=== PATIENT | male | born 1950 | race Two or more races ===

== ENCOUNTER → 2024-04-12 | Outpatient (CLI) | payer OTHER, SELFPAY ==
[2024-04-12 10:36] LABS: Basophils # (Auto) 0.1 Thou/mm3 (0.0-0.2); Basophils % (Auto) 1 % (0-2.5); Eosinophils # (Auto) 0.3 Thou/mm3 (0.0-0.5); Eosinophils % (Auto) 4 % (0-10); Hemoglobin 10.9 g/dL (13.5-16.0); Immature Granulocytes % (Auto) 0 % (0-0); Immature Granulocytes Auto 0.01 Thou/mm3 (0.00-0.00); Lymphocytes # (Auto) 2.1 Thou/mm3 (1.0-4.8); Lymphocytes % (Auto) 30 % (10-50); Mean Corpuscular HGB Conc 31.1 g/dl (31.0-37.0); Mean Corpuscular Hemoglobin 27.3 pg (25.0-35.0); Mean Corpuscular Volume 88 fL (80-100); Monocytes # (Auto) 0.6 Thou/mm3 (0.0-0.8); Monocytes % (Auto) 8 % (0-12); Neutrophils % (Auto) 57 % (37-80); Nucleated Red Blood Cell % 0 /100 WBC (0); Platelet Count 284 Thou/mm3 (140-440); RDW Standard Deviation 43.5 fL (35.1-43.9)
[2024-04-12 10:47] LABS: Alanine Aminotransferase 14 U/L (10-49); Albumin, Serum 4.5 gm/dL (3.4-4.8); Albumin/Globulin Ratio 1.8 (1.2-2.2); Alkaline Phosphatase 102 U/L (46-116); Anion Gap 7 (7-16); Aspartate Amino Transferase 18 U/L (0-34); BUN/Creatinine Ratio 22 Ratio (12-20); Bilirubin,Total 0.5 mg/dL (0.3-1.2); Blood Urea Nitrogen 22 mg/dL (9-23); Calcium 9.2 mg/dL (8.3-10.6); Calcium (Corrected) 9.2 mg/dL (8.5-10.1); Carbon Dioxide 27.7 mMol/L (20.0-31.0); Cardiac Risk Estimate 2.6 RATIO (4.0-6.7); Chloride 106 mMol/L (98-107); Cholesterol 138 mg/dL (132-200); Globulin 2.5 gm/dL (2.3-3.5); Glucose 104 mg/dL (74-106); HDL Cholesterol 54 mg/dL (40-60); LDL Cholesterol,Calculated 72 mg/dL (0-130); Osmolality,Calculated 284 (275-295); Potassium 4.1 mMol/L (3.4-5.1); Sodium 141 mMol/L (136-145); Triglycerides 61 mg/dL (30-150); eGFR > 60 See Note
== END | disposition home or self-care (01) ==
LOC: COPL 09:19
PROVIDERS: PCP Internal Medicine; Referring Provider Internal Medicine; Visit Provider Internal Medicine
DX: D50.0 Iron deficiency anemia secondary to blood loss (chronic) (principal); E78.2 Mixed hyperlipidemia; I10 Essential (primary) hypertension
CPT/HCPCS: 36415; 80053; 80061; 85025

== ENCOUNTER 2024-05-26 08:20 | Day surgery (SDC) | payer OTHER, SELFPAY ==
[2024-05-26] VITALS (7 sets, daily range): BP systolic 109–150; BP diastolic 66–101; PULSE 66–79; RESP 12–18; TEMP 36.1–36.9; O2SAT 97–100; BMI 28.3
[2024-05-26] MEDS: MIDAZOLAM INJ 1 MG/ML VIAL 2 ML (ASD USE ONLY) 2 MG IV (10:38)
[2024-05-26] MEDS: DiphenhydrAMINE INJ 50 MG/ML VIAL 25 MG IV (10:38)
[2024-05-26] MEDS: fentaNYL CIT INJ 50 mCg/ML AMP 2ML (ASD USE ONLY) IV (10:38)
--- NOTE | 2024-05-26 11:12 | SUR.PHASEII ---
1054: Pt received in recovery room. Report from Sophie WOODWARD. Pt groggy. Is arousable with eye opening then drifts back to sleep. Resp even, unlabored. VS stable. No c/o pain, discomfort.
--- NOTE | 2024-05-26 12:53 | SUR.PHASEII ---
1118: Pt more awake. Sitting up tolerating po fluids with no difficulty swallowing and no n/v. Daughter at bedside. 1138: Pt fully awake, oriented x3. VS stable. Denies pain/nausea. Pt assisted to restroom. Ambulation steady. Pt requested daughter interpret for him. Pt and daughter stated understanding of discharge instructions. Pt discharged from [facility] in stable condition.
== END 2024-05-26 11:38 | disposition home or self-care (01) ==
PROVIDERS: PCP Internal Medicine; Referring Provider Specialist; Visit Provider Specialist
PROC: 0DBE8ZX Excision of Large Intestine, Via Natural or Artificial Opening Endoscopic, Diagnostic (ICD-10-PCS; CPT 45380; principal; 2024-05-26 09:15)
DX: Z12.11 Encounter for screening for malignant neoplasm of colon (principal); K64.9 Unspecified hemorrhoids
CPT/HCPCS: G0121; J1200; J2250; J3010

== ENCOUNTER → 2024-07-01 | Outpatient (CLI) | payer OTHER, SELFPAY ==
[2024-07-01 16:39] LABS: Vitamin B12 693 pg/mL (211-911)
[2024-07-01 22:40] LABS: Iron 28 mcg/dL (65-175)
== END | disposition home or self-care (01) ==
LOC: COPL 14:33
PROVIDERS: PCP Internal Medicine; Referring Provider Internal Medicine; Visit Provider Internal Medicine
DX: D50.0 Iron deficiency anemia secondary to blood loss (chronic) (principal)
CPT/HCPCS: 36415; 82607; 83540

== ENCOUNTER → 2024-08-12 | Outpatient (CLI) | payer OTHER, SELFPAY ==
[2024-08-12 16:04] LABS: Basophils # (Auto) 0.1 Thou/mm3 (0.0-0.2); Basophils % (Auto) 1 % (0-2.5); Eosinophils # (Auto) 0.2 Thou/mm3 (0.0-0.5); Eosinophils % (Auto) 3 % (0-10); Hematocrit 34.5 % (41.0-53.0); Hemoglobin 11.1 g/dL (13.5-16.0); Immature Granulocytes % (Auto) 0 % (0-0); Immature Granulocytes Auto 0.02 Thou/mm3 (0.00-0.00); Lymphocytes # (Auto) 2.3 Thou/mm3 (1.0-4.8); Lymphocytes % (Auto) 28 % (10-50); Mean Corpuscular HGB Conc 32.2 g/dl (31.0-37.0); Mean Corpuscular Hemoglobin 27.6 pg (25.0-35.0); Mean Corpuscular Volume 86 fL (80-100); Monocytes # (Auto) 0.5 Thou/mm3 (0.0-0.8); Monocytes % (Auto) 6 % (0-12); Neutrophils # (Auto) 5.3 Thou/mm3 (1.8-7.7); Neutrophils % (Auto) 63 % (37-80); Nucleated Red Blood Cell % 0 /100 WBC (0); Platelet Count 239 Thou/mm3 (140-440); RDW Standard Deviation 49.4 fL (35.1-43.9); Red Blood Count 4.02 Miln/mm3 (4.50-5.90); White Blood Count 8.3 Thou/mm3 (3.8-10.6)
[2024-08-12 16:16] LABS: Iron 71 mcg/dL (65-175)
[2024-08-12 16:19] LABS: Vitamin B12 531 pg/mL (211-911)
[2024-08-12 16:24] LABS: Free T4 (Free Thyroxine) 1.11 ng/dL (0.89-1.76); Thyroid Stimulating Hormone 2.52 uIU/mL (0.55-4.78)
[2024-08-18 23:33] LABS: Albumin 3.7 g/dL (3.8-4.8); Alpha-1-Globulin 0.2 g/dL (0.2-0.3); Alpha-2-Globulin 0.6 g/dL (0.5-0.9); Beta-1-Globulin 0.4 g/dL (0.4-0.6); Beta-2-globulin 0.4 g/dL (0.2-0.5); Gamma Globulin 0.8 g/dL (0.8-1.7)
[2024-08-19 06:52] LABS: Protein, total, serum 6.2 g/dL (6.1-8.1)
== END | disposition home or self-care (01) ==
LOC: COPL 15:09
PROVIDERS: PCP Internal Medicine; Referring Provider Internal Medicine; Visit Provider Internal Medicine
DX: D50.0 Iron deficiency anemia secondary to blood loss (chronic) (principal)
CPT/HCPCS: 36415; 82607; 83540; 84155; 84165; 84439; 84443; 85025; 86334

== ENCOUNTER → 2024-09-21 | Outpatient (CLI) | payer OTHER, SELFPAY ==
[2024-09-21 16:50] LABS: Albumin, Serum 4.1 gm/dL (3.4-4.8); Anion Gap 6 (7-16); BUN/Creatinine Ratio 22 Ratio (12-20); Blood Urea Nitrogen 20 mg/dL (9-23); Calcium 9.1 mg/dL (8.3-10.6); Calcium (Corrected) 9.1 mg/dL (8.5-10.1); Carbon Dioxide 28.2 mMol/L (20.0-31.0); Chloride 110 mMol/L (98-107); Creatinine (Component) 0.9 mg/dL (0.6-1.3); Glucose 116 mg/dL (74-106); Osmolality,Calculated 290 (275-295); Phosphorous 4.1 mg/dL (2.4-5.1); Potassium 4.1 mMol/L (3.4-5.1); Sodium 144 mMol/L (136-145); eGFR > 60 See Note
== END | disposition home or self-care (01) ==
LOC: COPL 15:08
PROVIDERS: PCP Internal Medicine; Referring Provider Internal Medicine; Visit Provider Internal Medicine
DX: I10 Essential (primary) hypertension (principal); E78.2 Mixed hyperlipidemia; D50.0 Iron deficiency anemia secondary to blood loss (chronic)
CPT/HCPCS: 36415; 80069

== ENCOUNTER → 2025-01-25 | Outpatient (CLI) | payer OTHER, SELFPAY ==
[2025-01-25 09:24] LABS: Basophils # (Auto) 0.1 Thou/mm3 (0.0-0.2); Basophils % (Auto) 1 % (0-2.5); Eosinophils # (Auto) 0.4 Thou/mm3 (0.0-0.5); Eosinophils % (Auto) 5 % (0-10); Hematocrit 39.4 % (41.0-53.0); Hemoglobin 12.6 g/dL (13.5-16.0); Immature Granulocytes Auto 0.01 Thou/mm3 (0.00-0.00); Lymphocytes # (Auto) 2.2 Thou/mm3 (1.0-4.8); Lymphocytes % (Auto) 31 % (10-50); Mean Corpuscular HGB Conc 32.0 g/dl (31.0-37.0); Mean Corpuscular Hemoglobin 28.4 pg (25.0-35.0); Mean Corpuscular Volume 89 fL (80-100); Monocytes # (Auto) 0.6 Thou/mm3 (0.0-0.8); Monocytes % (Auto) 8 % (0-12); Neutrophils # (Auto) 4.0 Thou/mm3 (1.8-7.7); Neutrophils % (Auto) 56 % (37-80); Nucleated Red Blood Cell # 0.00 Thou/mm3 (0.00-0.00); Nucleated Red Blood Cell % 0 /100 WBC (0); Platelet Count 269 Thou/mm3 (140-440); RDW Standard Deviation 42.3 fL (35.1-43.9); Red Blood Count 4.44 Miln/mm3 (4.50-5.90); White Blood Count 7.3 Thou/mm3 (3.8-10.6)
[2025-01-25 09:42] LABS: Alanine Aminotransferase 11 U/L (10-49); Albumin, Serum 4.3 gm/dL (3.4-4.8); Albumin/Globulin Ratio 2.0 (1.2-2.2); Alkaline Phosphatase 105 U/L (46-116); Anion Gap 8 (7-16); Aspartate Amino Transferase 16 U/L (0-34); BUN/Creatinine Ratio 24 Ratio (12-20); Bilirubin,Total 0.6 mg/dL (0.3-1.2); Blood Urea Nitrogen 24 mg/dL (9-23); Calcium 10.1 mg/dL (8.3-10.6); Calcium (Corrected) 10.1 mg/dL (8.5-10.1); Carbon Dioxide 27.6 mMol/L (20.0-31.0); Cardiac Risk Estimate 2.9 RATIO (4.0-6.7); Chloride 109 mMol/L (98-107); Cholesterol 150 mg/dL (132-200); Creatinine (Component) 1.0 mg/dL (0.6-1.3); Globulin 2.1 gm/dL (2.3-3.5); Glucose 112 mg/dL (74-106); HDL Cholesterol 52 mg/dL (40-60); LDL Cholesterol,Calculated 80 mg/dL (0-130); Osmolality,Calculated 293 (275-295); Potassium 5.1 mMol/L (3.4-5.1); Sodium 145 mMol/L (136-145); Total Protein 6.4 gm/dL (5.7-8.2); Triglycerides 91 mg/dL (30-150); eGFR > 60 See Note
== END | disposition home or self-care (01) ==
LOC: COPL 08:13
PROVIDERS: PCP Internal Medicine; Referring Provider Internal Medicine; Visit Provider Internal Medicine
DX: I10 Essential (primary) hypertension (principal); D50.0 Iron deficiency anemia secondary to blood loss (chronic); E78.2 Mixed hyperlipidemia
CPT/HCPCS: 36415; 80053; 80061; 85025